=== PATIENT | female | born 1965 | race Caucasian/White ===

== ENCOUNTER → 2017-05-09 | Outpatient (CLI) | payer OTHER ==
--- NOTE | 2017-05-09 14:38 | KCIC ---
Bilateral digital screening mammogram History: Annual screening mammography Comparison: May 08, 2016 and April 07, 2014 Findings: Breast Tissue Density B :There are scattered areas of fibroglandular density. Bilateral digital mammogram images are obtained with CAD. No suspicious masses, architectural distortion, or grouped microcalcifications are identified. Impression: Negative exam. Recommend screening mammogram in one year. BI-RADS Category 1: Negative. PQRS compliance statement - Patient information was entered into a reminder system with a target due date for the next mammogram. Electronically signed by: Sonya Hannah MD (05/09/2017 2:35 PM) [facility]
== END | disposition home or self-care (01) ==
LOC: KCIC MAMMO 13:52
PROVIDERS: ATTEND Obstetrics & Gynecology
DX: Z12.31 Encounter for screening mammogram for malignant neoplasm of breast (principal)
CPT/HCPCS: G0202; 77067

== ENCOUNTER → 2018-05-13 | Outpatient (CLI) | payer OTHER ==
--- NOTE | 2018-05-13 13:16 | KCIC ---
Bilateral digital screening mammograms: Reason for examination: Routine screening. Comparison is made to previous studies dated 05/09/2017 and 05/08/2016. Interpretation was made with the benefit of CAD. The skin and nipples show no abnormalities. No abnormal axillary lymph nodes are seen. The breast parenchyma shows scattered fibroglandular density. (Breast density: Category B.) There continues to be a small nodular parenchymal density at the central 3:00 B position of the right breast which was shown a slight decrease in size. There are no new dominant masses, suspicious calcifications or architectural distortions. A few benign calcifications are present. Impression: No evidence of malignancy. Recommend routine screening. BI-RADS category 2: Benign "Our facility is accredited by the [employer] Mammography [employer]." This patient's information has been entered into a reminder system for the patient to be notified with the results of her examination and a target date for the next mammogram. Electronically signed by: Jackelin Hoyt MD (05/13/2018 1:13 PM) [facility]
== END | disposition home or self-care (01) ==
LOC: KCIC MAMMO 09:58
PROVIDERS: ATTEND Obstetrics & Gynecology
DX: Z12.31 Encounter for screening mammogram for malignant neoplasm of breast (principal)
CPT/HCPCS: 77067

== ENCOUNTER → 2019-07-21 | Outpatient (CLI) | payer OTHER ==
--- NOTE | 2019-07-21 16:36 | KCIC ---
Bilateral digital screening mammograms: Reason for examination: Routine screening. Comparison is made to previous studies dated 05/13/2018 and 05/09/2017. Interpretation was made with the benefit of CAD. The skin and nipples show no abnormalities. No abnormal axillary lymph nodes are seen. The breast parenchyma shows scattered fibroglandular density. (Breast density: Category B.) There are no dominant masses, suspicious calcifications or architectural distortions. Impression: No evidence of malignancy. Recommend routine screening. BI-RADS Category 1: Negative. "Our facility is accredited by the [employer]ammography [employer]." This patient's information has been entered into a reminder system for the patient to be notified with the results of her examination and a target date for the next mammogram. Electronically signed by: Jackelin Hoyt MD (07/21/2019 4:32 PM) [email or web address]
== END | disposition home or self-care (01) ==
LOC: KCIC MAMMO 11:28
PROVIDERS: ATTEND Obstetrics & Gynecology
DX: Z12.31 Encounter for screening mammogram for malignant neoplasm of breast (principal)
CPT/HCPCS: 77067

== ENCOUNTER → 2021-07-05 | Outpatient (CLI) | payer OTHER ==
[~2021-07-05] MED LIST: LIDOCAINE 1% Multi-Dose 20 ML VIAL. INJ ONE
--- NOTE | 2021-07-05 10:30 | RAD ---
[facility], US BREAST BIOPSY 1ST LESION History:Reason: post sono biopsy, clip placement / Spl. Instructions: / History: Comparison: None Procedure: Relative benefits, risks and alternatives to the procedure were discussed and written inf ormed consent was obtained. Left breast lobulated mass 10:00 position 10 cm from the nipple with incr eased vascularity. With sterile technique, local anesthesia and ultrasound guidance, percutaneous biopsy was performed w ith a 14-gauge needle and multiple passes were obtained through the target. A marker was placed, and post procedure CC and ML views were obtained. The biopsy marker is within th e upper inner breast mass. Increased density within this region likely related to small postbiopsy he morrhage. The procedure was well tolerated. Specimens were sent to Pathology. The patient was sent home in good condition with written and verbal instructions. Impression: 1. Successful ultrasound guided left breast mass biopsy with marker placement. Pathology is pending. Electronically signed by: Karan Veloz DO (07/05/2021 10:27 AM) [id number]
--- NOTE | 2021-07-06 18:08 | PATHOLOGY ---
[facility] Accession Number: [id number] . 01 Material submitted: . breast - LEFT BREAST MASS 10 O'CLOCK 10 CMFN 1.7 CM. Modifiers: left . 02 Diagnosis: Breast tissue, left breast mass 10:00 10 cm from nipple needle biopsies: - INVASIVE DUCTAL CARCINOMA, HISTOLOGIC GRADE 2. SEE COMMENT. LBQ 07/06/2021 1121 Local . 02 Comment: Sections of the left breast mass 10:00 needle biopsy reveal an invasive mammary carcinoma. The tumor shows moderate tubule formation and is associated with a reactive desmoplastic stroma. Tumor cells otherwise have a solid nested appearance. Tumor cells show moderate nuclear pleomorphism. Mitotic figures are present, with foci showing up to 3-4 mitotic figures per high power field. There are a few tumor associated calcifications. There is no lymphovascular tumor invasion. The invasive carcinoma measures up to 1.4 cm in greatest dimension on the glass slide. Breast prognostic studies will be obtained on A1, the results of which will be reported separately. The case is also examined by Dr. Ying, who concurs with the diagnosis. (JPM/db; 07/06/2021) . 02 Electronically signed: . Dariusz Negrete MD, Pathologist NPI- [id number] . 01 Gross description: . The specimen is received in formalin, labeled "Soniya Kang, Lt breast 1000 10 cmFN" and consists of 4 eastman fatty cylindrical needle core biopsies ranging in length from 1.3 cm to 1.7 cm and each averaging 0.2 cm in diameter. The specimen is submitted entirely in A1-A3. The cold ischemic time is 1 minute. The total time in formalin is 11 hours. ([place]; 07/05/2021) DKA/DKA 07/05/[address] [place] [address] . 02 Pathologist provided ICD-10: C50.912 . 02 CPT . 618381 Specimen Comment: A courtesy copy of this report has been sent to [phone], [phone] Specimen Comment: [id number] Specimen Comment: Report sent to / DR PEDROZA Performed at: [address] [facility] [address], [place], [place] [id number] MD Sterling Babb MD Phone: [phone] Performed at: 02 [facility] [place] [address] [place], [place] [id number] MD Dariusz Negrete MD Phone: [phone]
== END | disposition home or self-care (01) ==
LOC: US 09:09
PROVIDERS: ATTEND Obstetrics & Gynecology
DX: N63.22 Unspecified lump in the left breast, upper inner quadrant (principal); R92.8 Other abnormal and inconclusive findings on diagnostic imaging of breast; Z79.899 Other long term (current) drug therapy
CPT/HCPCS: 19083; 77065; A4648; C1819; J3490